=== PATIENT | male | born 1975 | race Caucasian/White ===

== ENCOUNTER 2024-10-28 22:48 | Inpatient (IN) | payer MEDICAID, MEDICARE, OTHER, SELFPAY ==
[~2024-10-28] VITALS: Ht 182.9 cm; Wt 79.0 kg
[2024-10-28] MEDS: diphenhydrAMINE 50MG/ML VIAL IM ONE (23:20)
[2024-10-28] MEDS: HALOPERIDOL LACTATE 5MG/ML VIAL IM ONE (23:20)
[2024-10-28] MEDS: LORazepam 2 MG/ML 1ML VIAL IM ONE (23:21)
[2024-10-29 00:34] LABS: ETHYL ALCOHOL (ETHANOL) 0.139 % (0.000-0.010)
[2024-10-29 00:36] LABS: ALBUMIN 3.5 G/DL (3.2-5.2); ALKALINE PHOSPHATASE 82 U/L (40-129); ALT/SGPT 20 U/L (7.0-40); AST/SGOT 21 U/L (<34); BILIRUBIN,DIRECT 0.2 MG/DL (<0.4); BILIRUBIN,TOTAL 0.5 MG/DL (0.3-1.2); BLOOD UREA NITROGEN 8 MG/DL (9-23); CARBON DIOXIDE LEVEL 26 MMOL/L (20-31); CHLORIDE LEVEL 108 MMOL/L (98-107); CREATININE FOR GFR 0.77 MG/DL (0.70-1.30); GLOMERULAR FILTRATION RATE > 60.0 (>60); GLUCOSE, FASTING 80 MG/DL (60-100); POTASSIUM SERUM 3.6 MMOL/L (3.5-5.1); SALICYLATE LEVEL < 3.0 MG/DL (<30); SODIUM LEVEL 142 MMOL/L (136-145); TOTAL PROTEIN 6.7 G/DL (5.7-8.2)
[2024-10-29 00:38] LABS: HEMATOCRIT 43.6 % (42.0-52.0); HEMOGLOBIN 15.4 g/dl (13.5-17.5); MEAN CORPUSCULAR HEMOGLOBIN 33.6 pg (27.0-33.0); MEAN CORPUSCULAR HGB CONC 35.3 g/dl (32.0-36.5); PLATELET COUNT, AUTOMATED 254 10^3/uL (150-450); RED BLOOD COUNT 4.59 10^6/uL (4.30-6.10); THYROID STIMULATING HORMONE 1.411 uIU/ML (0.55-4.78); WHITE BLOOD COUNT 5.2 10^3/uL (4.0-10.0)
[2024-10-29 06:44] LABS: AMPHETAMINES LEVEL URINE NEGATIVE (NEGATIVE); BARBITURATES URINE NEGATIVE (NEGATIVE); BENZODIAZEPINES URINE NEGATIVE (NEGATIVE); COCAINE METABOLITE URINE NEGATIVE (NEGATIVE); METHADONE URINE NEGATIVE (NEGATIVE); OPIATES URINE NEGATIVE (NEGATIVE); PHENCYCLIDINE URINE NEGATIVE (NEGATIVE)
[2024-10-29 06:46] LABS: CANNABINOIDS URINE POSITIVE (NEGATIVE)
[2024-10-29] MEDS ORDERED: MOM 30ML SUSPENSION UDC PO PRN (10:10)
[2024-10-29] MEDS ORDERED: MAALOX 30 ML SUSP *UDC PO PRN (10:10)
[2024-10-29] MEDS ORDERED: traZODone 50 MG TAB PO PRN (10:10)
[2024-10-29] MEDS ORDERED: diphenhydrAMINE 25MG CAP PO PRN (10:10)
[2024-10-29] MEDS ORDERED: IBUPROFEN 400MG TAB PO PRN (10:10)
[2024-10-29] MEDS ORDERED: ACETAMINOPHEN 325 MG TAB PO PRN (10:10)
[2024-10-29] MEDS ORDERED: HOME MED LIST COMPLETE! XX SCH (11:10)
[2024-10-29 11:21] VITALS: BP 132/82; TEMP 97.1; O2SAT 96
[2024-10-29 15:34] VITALS: BP 130/68; TEMP 97.9; O2SAT 99
[2024-10-30] MEDS ORDERED: LORazepam 2 MG TAB PO PRN (11:40)
[2024-10-30] MEDS: THIAMINE 100 MG TAB PO SCH (11:45)
[2024-10-30] MEDS: FOLIC ACID 1MG TAB PO SCH (11:45)
[2024-10-30] MEDS: MULTIVITAMINS/MINERALS THERAP 1 TAB PO SCH (11:45)
[2024-10-30 16:26] VITALS: BP 142/98; TEMP 97.8; O2SAT 96
[2024-10-31] VITALS (7 sets, daily range): BP systolic 132–150; BP diastolic 82–98; TEMP 97.5–97.9; O2SAT 98–99
[2024-11-01 06:00] VITALS: BP 140/85
[2024-11-01 06:33] VITALS: BP 140/85; TEMP 97.3; O2SAT 97
[2024-11-01] MEDS: OLANZapine 5 MG TAB PO SCH (09:00)
[2024-11-01 14:36] VITALS: BP 145/93
[2024-11-01 14:55] VITALS: BP 145/93; TEMP 97.4; O2SAT 98
[2024-11-02 06:30] VITALS: BP 139/80; TEMP 97.7; O2SAT 95
[2024-11-02 15:41] VITALS: BP 131/84; TEMP 97.2; O2SAT 99
[2024-11-03 06:53] VITALS: BP 115/80; TEMP 97.8; O2SAT 99
[2024-11-03] MEDS ORDERED: OLAN1TAB16 PO (09:13)
[2024-11-03 14:45] VITALS: BP 140/85; TEMP 98.8; O2SAT 95
[2024-11-04 06:24] VITALS: BP 141/92; TEMP 98.1; O2SAT 96
== END 2024-11-04 13:43 | disposition home or self-care (01) | DRG 885 ==
LOC: M ED 22:48 → M ED INP 10-29 10:10 → M PSY 10-29 11:36
PROVIDERS: ADMIT Psychiatry & Neurology Psychiatry; ATTEND Psychiatry & Neurology Psychiatry
DX: F20.9 Schizophrenia, unspecified (principal); F10.10 Alcohol abuse, uncomplicated

== ENCOUNTER 2024-11-13 12:47 | Inpatient (IN) | payer OTHER ==
[~2024-11-13] VITALS: Ht 182.9 cm; Wt 63.6 kg
[~2024-11-13 12:47] MED LIST: OLAN1TAB16 PO
[2024-11-13 13:24] LABS: HEMATOCRIT 51.3 % (42.0-52.0); HEMOGLOBIN 17.8 g/dl (13.5-17.5); MEAN CORPUSCULAR HGB CONC 34.7 g/dl (32.0-36.5); PLATELET COUNT, AUTOMATED 269 10^3/uL (150-450); WHITE BLOOD COUNT 8.4 10^3/uL (4.0-10.0)
[2024-11-13 13:53] LABS: AMPHETAMINES LEVEL URINE NEGATIVE (NEGATIVE); BARBITURATES URINE NEGATIVE (NEGATIVE)
[2024-11-13 13:54] LABS: BENZODIAZEPINES URINE NEGATIVE (NEGATIVE); COCAINE METABOLITE URINE NEGATIVE (NEGATIVE); METHADONE URINE NEGATIVE (NEGATIVE); OPIATES URINE NEGATIVE (NEGATIVE); PHENCYCLIDINE URINE NEGATIVE (NEGATIVE)
[2024-11-13 13:56] LABS: ETHYL ALCOHOL (ETHANOL) 0.005 % (0.000-0.010)
[2024-11-13 13:57] LABS: CANNABINOIDS URINE POSITIVE (NEGATIVE)
[2024-11-13 13:58] LABS: SALICYLATE LEVEL < 3.0 MG/DL (<30)
[2024-11-13 14:00] LABS: THYROID STIMULATING HORMONE 1.095 uIU/ML (0.55-4.78)
[2024-11-13 14:11] LABS: ALBUMIN 4.4 G/DL (3.2-5.2); ALKALINE PHOSPHATASE 91 U/L (40-129); ALT/SGPT 24 U/L (7.0-40); AST/SGOT 18 U/L (<34); BILIRUBIN,DIRECT 0.2 MG/DL (<0.4); BILIRUBIN,TOTAL 0.8 MG/DL (0.3-1.2); BLOOD UREA NITROGEN 13 MG/DL (9-23); CARBON DIOXIDE LEVEL 25 MMOL/L (20-31); CHLORIDE LEVEL 105 MMOL/L (98-107); CREATININE FOR GFR 0.82 MG/DL (0.70-1.30); GLOMERULAR FILTRATION RATE > 60.0 (>60); GLUCOSE, FASTING 87 MG/DL (60-100); MAGNESIUM LEVEL 2.4 MG/DL (1.8-2.4); POTASSIUM SERUM 4.3 MMOL/L (3.5-5.1); SODIUM LEVEL 140 MMOL/L (136-145); TOTAL PROTEIN 7.7 G/DL (5.7-8.2)
[2024-11-13 14:16] LABS: AMORPHOUS SEDIMENT SMALL (NEGATIVE); APPEARANCE, URINE HAZY (CLEAR); BACTERIA, URINE AUTO NEGATIVE (NEGATIVE); BILIRUBIN, URINE AUTO NEGATIVE (NEGATIVE); BLOOD, URINE BLOOD NEGATIVE (NEGATIVE); COLOR, URINE AMBER (YELLOW); GLUCOSE, URINE (UA) AUTO NEGATIVE (NEGATIVE); KETONE, URINE AUTO TRACE mg/dL (NEGATIVE); LEUKOCYTE ESTERASE, URINE AUTO NEGATIVE (NEGATIVE); MUCUS, URINE SMALL (NEGATIVE); NITRITE, URINE AUTO NEGATIVE (NEGATIVE); PROTEIN, URINE AUTO 1+ mg/dL (NEGATIVE); RBC, URINE AUTO 1 /HPF (0-3); SPECIFIC GRAVITY URINE AUTO 1.025 (1.002-1.035); SQUAMOUS EPITHELIAL CELL UR AU 0 /HPF (0-6); WBC, URINE AUTO 2 /HPF (0-3)
[2024-11-13] MEDS ORDERED: ACETAMINOPHEN 325 MG TAB PO PRN (15:50)
[2024-11-13] MEDS ORDERED: MOM 30ML SUSPENSION UDC PO PRN (15:50)
[2024-11-13] MEDS ORDERED: traZODone 50 MG TAB PO PRN (15:50)
[2024-11-13] MEDS ORDERED: diphenhydrAMINE 25MG CAP PO PRN (15:50)
[2024-11-13] MEDS ORDERED: MAALOX 30 ML SUSP *UDC PO PRN (15:50)
[2024-11-13] MEDS ORDERED: IBUPROFEN 400MG TAB PO PRN (15:50)
[2024-11-13] MEDS ORDERED: HOME MED LIST COMPLETE! XX SCH (20:50)
[2024-11-14 06:28] VITALS: BP 140/81; TEMP 98.2; O2SAT 97
[2024-11-14] MEDS ORDERED: OLANZapine ORAL DISINTEGRATING TAB 5MG PO PRN (09:55)
[2024-11-14] MEDS: OLANZapine 5 MG TAB PO SCH (10:27)
[2024-11-14] MEDS: MULTIVITAMINS/MINERALS THERAP 1 TAB PO SCH (10:27)
[2024-11-15 06:35] VITALS: BP 118/79; TEMP 97.4; O2SAT 98
[2024-11-15 14:37] VITALS: BP 135/78; TEMP 98; O2SAT 98
[2024-11-15] MEDS: OLANZapine 2.5MG TABLET PO ONE (20:05)
[2024-11-16 06:15] VITALS: BP 129/80; TEMP 97.7; O2SAT 98
[2024-11-16 16:27] VITALS: BP 128/74; TEMP 97.5; O2SAT 97
[2024-11-16] MEDS: OLANZapine 10 MG TAB PO SCH (20:22)
[2024-11-17 06:39] VITALS: BP 134/90; TEMP 97.3; O2SAT 96
[2024-11-17 15:23] VITALS: BP 137/82; TEMP 98.6; O2SAT 97
[2024-11-18 06:44] VITALS: BP 130/80; TEMP 97.7; O2SAT 98
[2024-11-18 15:07] VITALS: BP 141/83; TEMP 98.4; O2SAT 97
[2024-11-19 06:19] VITALS: BP 134/84; TEMP 98.1; O2SAT 96
[2024-11-19 16:40] VITALS: BP 128/72; TEMP 96; O2SAT 96
[2024-11-19 17:47] VITALS: TEMP 98
[2024-11-20 06:17] VITALS: BP 125/85; TEMP 98.2; O2SAT 99
[2024-11-20 16:17] VITALS: BP 128/75; TEMP 98.6; O2SAT 96
[2024-11-21 06:25] VITALS: BP 136/82; TEMP 97.9; O2SAT 98
[2024-11-21 15:51] VITALS: BP 137/89; TEMP 98.1; O2SAT 97
[2024-11-22 06:14] VITALS: BP 139/89; TEMP 97
[2024-11-22] MEDS ORDERED: OLAN1TAB20 PO (12:34)
[2024-11-22] MEDS ORDERED: Multivitamins PO (12:34)
[2024-11-22 17:04] VITALS: BP 131/87; TEMP 98.7; O2SAT 97
[2024-11-23 06:34] VITALS: BP 121/76; TEMP 98.2; O2SAT 96
[2024-11-23 15:14] VITALS: BP 134/86; TEMP 97; O2SAT 96
[2024-11-24 06:24] VITALS: BP 131/89; TEMP 98; O2SAT 97
[2024-11-24 15:57] VITALS: BP 126/83; TEMP 98.4; O2SAT 97
[2024-11-25 06:20] VITALS: BP 122/89; TEMP 97.4; O2SAT 98
== END 2024-11-25 13:07 | disposition home or self-care (01) | DRG 885 ==
LOC: M ED 12:47 → M ED INP 15:47 → M PSY 16:51
PROVIDERS: ADMIT Psychiatry & Neurology Psychiatry; ATTEND Psychiatry & Neurology Psychiatry
DX: F20.0 Paranoid schizophrenia (principal); F17.200 Nicotine dependence, unspecified, uncomplicated; F12.10 Cannabis abuse, uncomplicated; R45.850 Homicidal ideations

== ENCOUNTER 2024-12-14 23:14 | Inpatient (IN) | payer OTHER ==
[~2024-12-14] VITALS: Ht 182.9 cm; Wt 70.6 kg
[~2024-12-14 23:14] MED LIST changes: +Multivitamins PO; +OLAN1TAB20 PO
[2024-12-15] MEDS: diphenhydrAMINE 50MG/ML VIAL IM ONE (00:05)
[2024-12-15] MEDS: HALOPERIDOL LACTATE 5MG/ML VIAL IM ONE (00:05)
[2024-12-15] MEDS: LORazepam 2 MG/ML 1ML VIAL IM ONE (00:06)
[2024-12-15 00:28] LABS: HEMATOCRIT 44.8 % (42.0-52.0); MEAN CORPUSCULAR HEMOGLOBIN 32.9 pg (27.0-33.0); MEAN CORPUSCULAR HGB CONC 35.7 g/dl (32.0-36.5); PLATELET COUNT, AUTOMATED 260 10^3/uL (150-450); RED BLOOD COUNT 4.87 10^6/uL (4.30-6.10); WHITE BLOOD COUNT 7.9 10^3/uL (4.0-10.0)
[2024-12-15 00:37] LABS: ETHYL ALCOHOL (ETHANOL) 0.161 % (0.000-0.010)
[2024-12-15 00:39] LABS: ALKALINE PHOSPHATASE 70 U/L (40-129); ALT/SGPT 16 U/L (7.0-40); AST/SGOT 20 U/L (<34); BILIRUBIN,DIRECT 0.2 MG/DL (<0.4); BILIRUBIN,TOTAL 0.8 MG/DL (0.3-1.2); BLOOD UREA NITROGEN 8 MG/DL (9-23); CARBON DIOXIDE LEVEL 24 MMOL/L (20-31); CHLORIDE LEVEL 106 MMOL/L (98-107); CREATININE FOR GFR 0.76 MG/DL (0.70-1.30); GLOMERULAR FILTRATION RATE > 60.0 (>60); GLUCOSE, FASTING 88 MG/DL (60-100); SALICYLATE LEVEL < 3.0 MG/DL (<30); SODIUM LEVEL 140 MMOL/L (136-145); TOTAL PROTEIN 7.3 G/DL (5.7-8.2)
[2024-12-15 07:16] LABS: AMPHETAMINES LEVEL URINE NEGATIVE (NEGATIVE); BARBITURATES URINE NEGATIVE (NEGATIVE); BENZODIAZEPINES URINE NEGATIVE (NEGATIVE); COCAINE METABOLITE URINE NEGATIVE (NEGATIVE); METHADONE URINE NEGATIVE (NEGATIVE); OPIATES URINE NEGATIVE (NEGATIVE); PHENCYCLIDINE URINE NEGATIVE (NEGATIVE)
[2024-12-15 07:20] LABS: CANNABINOIDS URINE POSITIVE (NEGATIVE)
[2024-12-15] MEDS ORDERED: HOME MED LIST COMPLETE! XX SCH (10:00)
[2024-12-15 13:20] VITALS: BP 117/68; TEMP 97.5; O2SAT 97
[2024-12-15 16:53] VITALS: BP 132/78; TEMP 98.3; O2SAT 97
[2024-12-15] MEDS ORDERED: MAALOX 30 ML SUSP *UDC PO PRN (22:30)
[2024-12-15] MEDS ORDERED: MOM 30ML SUSPENSION UDC PO PRN (22:30)
[2024-12-15] MEDS ORDERED: ACETAMINOPHEN 325 MG TAB PO PRN (22:30)
[2024-12-15] MEDS ORDERED: LORazepam 1 MG TAB PO PRN (22:30)
[2024-12-15] MEDS ORDERED: IBUPROFEN 400MG TAB PO PRN (22:30)
[2024-12-15] MEDS ORDERED: traZODone 50 MG TAB PO PRN (22:30)
[2024-12-15] MEDS ORDERED: OLANZapine ORAL DISINTEGRATING TAB 5MG PO PRN (22:30)
[2024-12-15] MEDS ORDERED: diphenhydrAMINE 25MG CAP PO PRN (22:30)
[2024-12-15] MEDS: MULTIVITAMINS/MINERALS THERAP 1 TAB PO SCH (22:49)
[2024-12-16 06:34] VITALS: BP 133/87; TEMP 97.8; O2SAT 94
[2024-12-16] MEDS: NICOTINE 14 MG/24 HR TRANSDERMAL TD SCH (08:15)
[2024-12-16] MEDS: OLANZapine 5 MG TAB PO SCH (08:56)
[2024-12-16 15:56] VITALS: BP 116/71; TEMP 97.9; O2SAT 97
[2024-12-17 06:36] VITALS: BP 144/86; TEMP 98.1; O2SAT 95
[2024-12-17 15:19] VITALS: BP 125/79; TEMP 98.7; O2SAT 97
[2024-12-18 06:45] VITALS: BP 128/86; TEMP 97.3; O2SAT 98
[2024-12-18 15:19] VITALS: BP 133/91; TEMP 98.3; O2SAT 95
[2024-12-19 06:36] VITALS: BP 122/76; TEMP 97.8; O2SAT 96
[2024-12-19 17:47] VITALS: BP 157/94; TEMP 97.1; O2SAT 97
[2024-12-20 06:56] VITALS: BP 165/89; TEMP 98.7; O2SAT 99
[2024-12-20] MEDS ORDERED: OLAN1TAB16 PO (10:48)
[2024-12-20] MEDS ORDERED: TRAZ-252 PO (10:48)
== END 2024-12-20 13:08 | disposition home or self-care (01) | DRG 885 ==
LOC: M ED 23:14 → M ED INP 12-15 12:10 → M PSY 12-15 13:33
PROVIDERS: ADMIT Psychiatry & Neurology Psychiatry; ATTEND Internal Medicine
DX: F20.3 Undifferentiated schizophrenia (principal); Z78.1 Physical restraint status; R45.1 Restlessness and agitation; F17.210 Nicotine dependence, cigarettes, uncomplicated

== ENCOUNTER 2024-12-20 22:36 | Inpatient (IN) | payer OTHER ==
[~2024-12-20] VITALS: Ht 182.9 cm; Wt 71.0 kg
[~2024-12-20 22:36] MED LIST changes: +TRAZ-252 PO
[2024-12-20] MEDS: OLANZapine INTRAMUSCULAR 10MG VIAL IM ONE (23:05)
[2024-12-20 23:38] LABS: ETHYL ALCOHOL (ETHANOL) 0.139 % (0.000-0.010)
[2024-12-20 23:39] LABS: ALBUMIN 3.8 G/DL (3.2-5.2); ALKALINE PHOSPHATASE 63 U/L (40-129); ALT/SGPT 28 U/L (7.0-40); AST/SGOT 36 U/L (<34); BILIRUBIN,DIRECT 0.1 MG/DL (<0.4); BILIRUBIN,TOTAL 0.4 MG/DL (0.3-1.2); BLOOD UREA NITROGEN 10 MG/DL (9-23); CALCIUM LEVEL 8.7 MG/DL (8.5-10.1); CARBON DIOXIDE LEVEL 26 MMOL/L (20-31); CHLORIDE LEVEL 106 MMOL/L (98-107); GLOMERULAR FILTRATION RATE > 60.0 (>60); GLUCOSE, FASTING 93 MG/DL (60-100); POTASSIUM SERUM 4.2 MMOL/L (3.5-5.1); SALICYLATE LEVEL < 3.0 MG/DL (<30); SODIUM LEVEL 143 MMOL/L (136-145); TOTAL PROTEIN 7.2 G/DL (5.7-8.2)
[2024-12-20 23:42] LABS: THYROID STIMULATING HORMONE 2.665 uIU/ML (0.55-4.78)
[2024-12-21 00:11] LABS: HEMATOCRIT 44.4 % (42.0-52.0); HEMOGLOBIN 15.4 g/dl (13.5-17.5); MEAN CORPUSCULAR HEMOGLOBIN 32.7 pg (27.0-33.0); MEAN CORPUSCULAR HGB CONC 34.7 g/dl (32.0-36.5); MEAN CORPUSCULAR VOLUME 94.3 fl (80.0-96.0); PLATELET COUNT, AUTOMATED 264 10^3/uL (150-450); RED BLOOD COUNT 4.71 10^6/uL (4.30-6.10); WHITE BLOOD COUNT 7.2 10^3/uL (4.0-10.0)
[2024-12-21 04:17] LABS: AMPHETAMINES LEVEL URINE NEGATIVE (NEGATIVE); BARBITURATES URINE NEGATIVE (NEGATIVE); BENZODIAZEPINES URINE NEGATIVE (NEGATIVE); CANNABINOIDS URINE NEGATIVE (NEGATIVE); COCAINE METABOLITE URINE NEGATIVE (NEGATIVE); METHADONE URINE NEGATIVE (NEGATIVE); OPIATES URINE NEGATIVE (NEGATIVE); PHENCYCLIDINE URINE NEGATIVE (NEGATIVE)
[2024-12-21] MEDS ORDERED: FAMOTIDINE 20 MG TAB PO PRN (13:10)
[2024-12-21] MEDS ORDERED: ACETAMINOPHEN 500 MG TAB PO PRN (13:10)
[2024-12-21] MEDS ORDERED: diphenhydrAMINE 25MG CAP PO PRN ×2 (13:10→14:55)
[2024-12-21] MEDS ORDERED: SUCRALFATE 1 GM TAB PO PRN (13:10)
[2024-12-21] MEDS ORDERED: OLANZapine ORAL DISINTEGRATING TAB 5MG PO PRN ×2 (13:10→14:55)
[2024-12-21] MEDS ORDERED: diphenhydrAMINE 50MG CAP PO PRN (13:10)
[2024-12-21] MEDS ORDERED: ONDANSETRON 4MG ORAL DISINTEGRATING TAB PO PRN (13:10)
[2024-12-21] MEDS ORDERED: IBUPROFEN 400MG TAB PO PRN (13:10)
[2024-12-21] MEDS ORDERED: LORazepam 2 MG TAB PO PRN (13:10)
[2024-12-21] MEDS ORDERED: CETIRIZINE (ZyrTEC) 10 MG TAB PO PRN (13:10)
[2024-12-21] MEDS ORDERED: ACETAMINOPHEN 325 MG TAB PO PRN (14:55)
[2024-12-21] MEDS ORDERED: OLANZapine 5 MG TAB PO PRN (14:55)
[2024-12-21] MEDS ORDERED: MOM 30ML SUSPENSION UDC PO PRN (14:55)
[2024-12-21] MEDS ORDERED: HOME MED LIST COMPLETE! XX SCH (14:55)
[2024-12-21] MEDS ORDERED: MAALOX 30 ML SUSP *UDC PO PRN (14:55)
[2024-12-21] MEDS ORDERED: traZODone 50 MG TAB PO PRN (14:55)
[2024-12-21] MEDS ORDERED: LORazepam 1 MG TAB PO PRN (14:55)
[2024-12-21 15:56] VITALS: BP 119/75; TEMP 98; O2SAT 99
[2024-12-21] MEDS: OLANZapine 5 MG TAB PO SCH (20:22)
[2024-12-22 06:36] VITALS: BP 139/85; TEMP 98.9; O2SAT 98
[2024-12-22] MEDS: NICOTINE 14 MG/24 HR TRANSDERMAL TD SCH (08:08)
[2024-12-22 14:51] VITALS: BP 129/83; TEMP 97.9; O2SAT 97
[2024-12-22] MEDS: traZODone 50 MG TAB PO SCH (20:13)
[2024-12-23 06:25] VITALS: BP 119/81; TEMP 97.9; O2SAT 98
[2024-12-23] MEDS: BENZTROPINE 1 MG TAB PO SCH (14:17)
[2024-12-23 17:05] VITALS: BP 134/81; TEMP 98.6; O2SAT 96
[2024-12-24 06:11] VITALS: BP 128/85; TEMP 97.2; O2SAT 97
[2024-12-24 15:18] VITALS: BP 119/76; TEMP 98.4; O2SAT 96
[2024-12-25 07:01] VITALS: BP 139/90; TEMP 97.6; O2SAT 98
[2024-12-25 14:52] VITALS: BP 129/80; TEMP 98.9; O2SAT 96
[2024-12-26 06:45] VITALS: BP 135/80; TEMP 97.1; O2SAT 98
[2024-12-26 17:03] VITALS: BP 139/81; TEMP 97.4; O2SAT 98
[2024-12-27 06:46] VITALS: BP 126/73; TEMP 97.7; O2SAT 97
[2024-12-27] MEDS ORDERED: TRAZ-252 PO (09:12)
[2024-12-27] MEDS ORDERED: BENZ1TAB5 PO (09:12)
[2024-12-27] MEDS ORDERED: OLAN1TAB16 PO (09:12)
== END 2024-12-27 15:00 | disposition home or self-care (01) | DRG 885 ==
LOC: M ED 22:36 → M PSY 12-21 14:55 → M ED 12-21 14:55 → M ED INP 12-21 14:55
PROVIDERS: ADMIT Internal Medicine; ATTEND Psychiatry & Neurology Psychiatry
DX: F25.0 Schizoaffective disorder, bipolar type (principal); F41.0 Panic disorder [episodic paroxysmal anxiety]; F10.20 Alcohol dependence, uncomplicated; Z79.899 Other long term (current) drug therapy; R45.850 Homicidal ideations; F17.210 Nicotine dependence, cigarettes, uncomplicated

== ENCOUNTER 2025-02-12 01:48 | Inpatient (IN) | payer OTHER ==
[~2025-02-12] VITALS: Ht 182.9 cm; Wt 67.0 kg
[~2025-02-12 01:48] MED LIST changes: +BENZ1TAB5 PO
[2025-02-12 02:45] LABS: HEMATOCRIT 44.8 % (42.0-52.0); HEMOGLOBIN 15.8 g/dl (13.5-17.5); MEAN CORPUSCULAR HEMOGLOBIN 33.7 pg (27.0-33.0); MEAN CORPUSCULAR HGB CONC 35.3 g/dl (32.0-36.5); MEAN CORPUSCULAR VOLUME 95.5 fl (80.0-96.0); PLATELET COUNT, AUTOMATED 246 10^3/uL (150-450); RED BLOOD COUNT 4.69 10^6/uL (4.30-6.10); WHITE BLOOD COUNT 5.9 10^3/uL (4.0-10.0)
[2025-02-12 03:08] LABS: AMPHETAMINES LEVEL URINE NEGATIVE (NEGATIVE); BARBITURATES URINE NEGATIVE (NEGATIVE); BENZODIAZEPINES URINE NEGATIVE (NEGATIVE); COCAINE METABOLITE URINE NEGATIVE (NEGATIVE); METHADONE URINE NEGATIVE (NEGATIVE); OPIATES URINE NEGATIVE (NEGATIVE); PHENCYCLIDINE URINE NEGATIVE (NEGATIVE)
[2025-02-12 03:10] LABS: ETHYL ALCOHOL (ETHANOL) 0.161 % (0.000-0.010)
[2025-02-12 03:12] LABS: ALBUMIN 3.8 G/DL (3.2-5.2); ALKALINE PHOSPHATASE 50 U/L (40-129); ALT/SGPT 35 U/L (7.0-40); AST/SGOT 21 U/L (<34); BILIRUBIN,DIRECT 0.2 MG/DL (<0.4); BILIRUBIN,TOTAL 0.5 MG/DL (0.3-1.2); BLOOD UREA NITROGEN 8 MG/DL (9-23); CALCIUM LEVEL 8.7 MG/DL (8.5-10.1); CARBON DIOXIDE LEVEL 26 MMOL/L (20-31); CHLORIDE LEVEL 107 MMOL/L (98-107); CREATININE FOR GFR 0.73 MG/DL (0.70-1.30); GLOMERULAR FILTRATION RATE > 60.0 (>60); GLUCOSE, FASTING 88 MG/DL (60-100); POTASSIUM SERUM 3.8 MMOL/L (3.5-5.1); SALICYLATE LEVEL < 3.0 MG/DL (<30); SODIUM LEVEL 142 MMOL/L (136-145)
[2025-02-12 03:14] LABS: THYROID STIMULATING HORMONE 1.688 uIU/ML (0.55-4.78)
[2025-02-12 03:34] LABS: CANNABINOIDS URINE POSITIVE (NEGATIVE)
[2025-02-12] MEDS ORDERED: diphenhydrAMINE 25MG CAP PO PRN (06:30)
[2025-02-12] MEDS ORDERED: OLANZapine ORAL DISINTEGRATING TAB 5MG PO PRN (06:30)
[2025-02-12] MEDS ORDERED: MOM 30ML SUSPENSION UDC PO PRN (06:30)
[2025-02-12] MEDS ORDERED: MAALOX 30 ML SUSP *UDC PO PRN (06:30)
[2025-02-12] MEDS ORDERED: ACETAMINOPHEN 325 MG TAB PO PRN (06:30)
[2025-02-12] MEDS ORDERED: IBUPROFEN 400MG TAB PO PRN (06:30)
[2025-02-12 08:31] VITALS: BP 116/73; TEMP 97.6; O2SAT 99
[2025-02-12 09:00] VITALS: BP 116/73
[2025-02-12] MEDS ORDERED: LORazepam 2 MG TAB PO PRN (09:15)
[2025-02-12] MEDS: OLANZapine 5 MG TAB PO SCH (09:50)
[2025-02-12] MEDS: THIAMINE 100 MG TAB PO SCH (09:50)
[2025-02-12] MEDS: BENZTROPINE 0.5 MG TAB PO SCH (09:50)
[2025-02-12] MEDS: MULTIVITAMINS/MINERALS THERAP 1 TAB PO SCH (09:50)
[2025-02-12] MEDS: FOLIC ACID 1MG TAB PO SCH (09:50)
[2025-02-12] MEDS ORDERED: HOME MED LIST COMPLETE! XX SCH (14:55)
[2025-02-12 14:57] VITALS: BP 121/77; TEMP 97.2; O2SAT 97
[2025-02-12 17:00] VITALS: BP 121/77
[2025-02-12] MEDS: traZODone 50 MG TAB PO PRN (20:11)
[2025-02-12 22:00] VITALS: BP 147/91
[2025-02-13 06:34] VITALS: BP 131/74; TEMP 98.1; O2SAT 94
[2025-02-13 14:25] VITALS: BP 161/99
[2025-02-13 15:46] VITALS: BP 161/99; TEMP 97.8; O2SAT 97
[2025-02-13 22:55] VITALS: BP 128/85
[2025-02-14 06:34] VITALS: BP 132/84; TEMP 97.6; O2SAT 98
[2025-02-14 15:43] VITALS: BP 140/90; TEMP 97.1; O2SAT 94
[2025-02-14 20:24] VITALS: BP 132/84
[2025-02-15 06:00] VITALS: BP 126/83; TEMP 97.9; O2SAT 97
[2025-02-15 15:18] VITALS: BP 126/91; TEMP 97.9; O2SAT 98
[2025-02-16 06:29] VITALS: BP 146/78; TEMP 97.6; O2SAT 99
[2025-02-16 08:53] VITALS: BP 142/71
[2025-02-16 13:47] VITALS: BP 142/92
[2025-02-16 16:16] VITALS: BP 136/88; TEMP 98.1; O2SAT 98
[2025-02-17 06:34] VITALS: BP 128/69; TEMP 98.1; O2SAT 98
[2025-02-17 08:43] VITALS: BP 128/68
[2025-02-17] MEDS ORDERED: BENZ0.5T2 PO (09:50)
== END 2025-02-17 14:19 | disposition home or self-care (01) | DRG 885 ==
LOC: M ED 01:48 → M ED INP 06:29 → M PSY 08:33
PROVIDERS: ADMIT Psychiatry & Neurology Neurology; ATTEND Internal Medicine
DX: F25.0 Schizoaffective disorder, bipolar type (principal); R45.851 Suicidal ideations; F41.9 Anxiety disorder, unspecified; F10.229 Alcohol dependence with intoxication, unspecified; R45.850 Homicidal ideations; Z91.148 Patient's other noncompliance with medication regimen for other reason

== ENCOUNTER 2025-03-10 18:43 | Inpatient (IN) | payer OTHER ==
[~2025-03-10] VITALS: Ht 182.9 cm; Wt 67.0 kg
[~2025-03-10 18:43] MED LIST changes: +BENZ0.5T2 PO
[2025-03-10 20:28] LABS: HEMATOCRIT 44.8 % (42.0-52.0); HEMOGLOBIN 15.9 g/dl (13.5-17.5); MEAN CORPUSCULAR HEMOGLOBIN 33.3 pg (27.0-33.0); MEAN CORPUSCULAR HGB CONC 35.5 g/dl (32.0-36.5); MEAN CORPUSCULAR VOLUME 93.7 fl (80.0-96.0); PLATELET COUNT, AUTOMATED 259 10^3/uL (150-450); RED BLOOD COUNT 4.78 10^6/uL (4.30-6.10); WHITE BLOOD COUNT 6.4 10^3/uL (4.0-10.0)
[2025-03-10 20:58] LABS: AMPHETAMINES LEVEL URINE NEGATIVE (NEGATIVE)
[2025-03-10 20:59] LABS: BARBITURATES URINE NEGATIVE (NEGATIVE); BENZODIAZEPINES URINE NEGATIVE (NEGATIVE); COCAINE METABOLITE URINE NEGATIVE (NEGATIVE)
[2025-03-10 21:00] LABS: METHADONE URINE NEGATIVE (NEGATIVE); OPIATES URINE NEGATIVE (NEGATIVE); PHENCYCLIDINE URINE NEGATIVE (NEGATIVE)
[2025-03-10 21:02] LABS: ETHYL ALCOHOL (ETHANOL) 0.102 % (0.000-0.010)
[2025-03-10 21:03] LABS: ALBUMIN 3.8 G/DL (3.2-5.2); ALKALINE PHOSPHATASE 52 U/L (40-129); ALT/SGPT 16 U/L (7.0-40); AST/SGOT 18 U/L (<34); BILIRUBIN,DIRECT 0.2 MG/DL (<0.4); BILIRUBIN,TOTAL 0.7 MG/DL (0.3-1.2); BLOOD UREA NITROGEN 9 MG/DL (9-23); CALCIUM LEVEL 8.9 MG/DL (8.5-10.1); CANNABINOIDS URINE POSITIVE (NEGATIVE); CARBON DIOXIDE LEVEL 25 MMOL/L (20-31); CHLORIDE LEVEL 107 MMOL/L (98-107); CREATININE FOR GFR 0.72 MG/DL (0.70-1.30); GLOMERULAR FILTRATION RATE > 90.0 (>60); GLUCOSE, FASTING 108 MG/DL (60-100); POTASSIUM SERUM 3.4 MMOL/L (3.5-5.1); SALICYLATE LEVEL < 3.0 MG/DL (<30); SODIUM LEVEL 140 MMOL/L (136-145); TOTAL PROTEIN 6.8 G/DL (5.7-8.2)
[2025-03-10 21:04] LABS: THYROID STIMULATING HORMONE 1.008 uIU/ML (0.55-4.78)
[2025-03-10] MEDS: POTASSIUM CHLORIDE 10MEQ SR TABLET PO ONE (21:47)
[2025-03-11] MEDS ORDERED: HOME MED LIST COMPLETE! XX SCH ×2 (00:30→00:40)
[2025-03-12] MEDS: LORazepam 2 MG TAB PO PRN (14:09)
[2025-03-13] MEDS ORDERED: OLANZapine 5 MG TAB PO PRN (11:40)
[2025-03-13] MEDS ORDERED: MOM 30ML SUSPENSION UDC PO PRN (11:40)
[2025-03-13] MEDS ORDERED: MAALOX 30 ML SUSP *UDC PO PRN (11:40)
[2025-03-13] MEDS ORDERED: traZODone 50 MG TAB PO PRN (11:40)
[2025-03-13] MEDS ORDERED: ACETAMINOPHEN 325 MG TAB PO PRN (11:40)
[2025-03-13] MEDS ORDERED: LORazepam 1 MG TAB PO PRN (11:40)
[2025-03-13] MEDS ORDERED: diphenhydrAMINE 25MG CAP PO PRN (11:40)
[2025-03-13 12:35] VITALS: BP 121/84; TEMP 97.9; O2SAT 94
[2025-03-13 16:53] VITALS: BP 108/74; TEMP 97.6; O2SAT 99
[2025-03-14 06:33] VITALS: BP 126/89; TEMP 97.8; O2SAT 98
[2025-03-14] MEDS: NICOTINE 14 MG/24 HR TRANSDERMAL TD SCH (09:00)
[2025-03-14] MEDS: OLANZapine 5 MG TAB PO SCH (09:02)
[2025-03-14 15:57] VITALS: BP 126/88; TEMP 97.8; O2SAT 97
[2025-03-14] MEDS: DOXYCYCLINE HYCLATE 100MG TABLET PO SCH (20:38)
[2025-03-15 06:37] VITALS: BP 128/78; TEMP 97.5; O2SAT 97
[2025-03-15 15:39] VITALS: BP 120/79; TEMP 97.3; O2SAT 99
[2025-03-16 06:24] VITALS: BP 136/89; TEMP 97.6; O2SAT 96
[2025-03-16 15:09] VITALS: BP 118/77; TEMP 97.8; O2SAT 99
[2025-03-17 06:39] VITALS: BP 136/85; TEMP 97.8; O2SAT 100
[2025-03-17] MEDS ORDERED: OLAN1TAB16 PO (06:59)
[2025-03-17] MEDS ORDERED: DOXY100T PO (06:59)
== END 2025-03-17 12:38 | disposition home or self-care (01) | DRG 885 ==
LOC: M ED 18:43 → M ED INP 03-13 11:38 → UNDODEPER 03-13 11:59 → M PSY 03-13 12:38
PROVIDERS: ADMIT Internal Medicine; ATTEND Psychiatry & Neurology Psychiatry
DX: F20.9 Schizophrenia, unspecified (principal); R45.851 Suicidal ideations; L02.212 Cutaneous abscess of back [any part, except buttock and flank]; L03.312 Cellulitis of back [any part except buttock and flank]; F10.10 Alcohol abuse, uncomplicated; Z91.198 Patient's noncompliance with other medical treatment and regimen for other reason; Z91.148 Patient's other noncompliance with medication regimen for other reason; F17.210 Nicotine dependence, cigarettes, uncomplicated

== ENCOUNTER 2025-03-31 00:30 | Emergency (ER) | payer OTHER ==
[~2025-03-31] VITALS: Ht 182.9 cm; Wt 77.3 kg
[~2025-03-31 00:30] MED LIST changes: +DOXY100T PO
[2025-03-31 01:07] LABS: HEMATOCRIT 44.2 % (42.0-52.0); HEMOGLOBIN 15.8 g/dl (13.5-17.5); MEAN CORPUSCULAR HEMOGLOBIN 33.8 pg (27.0-33.0); MEAN CORPUSCULAR HGB CONC 35.7 g/dl (32.0-36.5); MEAN CORPUSCULAR VOLUME 94.6 fl (80.0-96.0); PLATELET COUNT, AUTOMATED 270 10^3/uL (150-450); RED BLOOD COUNT 4.67 10^6/uL (4.30-6.10); WHITE BLOOD COUNT 6.1 10^3/uL (4.0-10.0)
[2025-03-31 01:30] LABS: AMPHETAMINES LEVEL URINE NEGATIVE (NEGATIVE); BARBITURATES URINE NEGATIVE (NEGATIVE); BENZODIAZEPINES URINE NEGATIVE (NEGATIVE); COCAINE METABOLITE URINE NEGATIVE (NEGATIVE); METHADONE URINE NEGATIVE (NEGATIVE); OPIATES URINE NEGATIVE (NEGATIVE); PHENCYCLIDINE URINE NEGATIVE (NEGATIVE)
[2025-03-31 01:33] LABS: ETHYL ALCOHOL (ETHANOL) 0.106 % (0.000-0.010)
[2025-03-31 01:34] LABS: ALKALINE PHOSPHATASE 54 U/L (40-129); ALT/SGPT 17 U/L (7.0-40); AST/SGOT 17 U/L (<34); BILIRUBIN,DIRECT 0.2 MG/DL (<0.4); BILIRUBIN,TOTAL 0.7 MG/DL (0.3-1.2); BLOOD UREA NITROGEN 7 MG/DL (9-23); CARBON DIOXIDE LEVEL 24 MMOL/L (20-31); CHLORIDE LEVEL 106 MMOL/L (98-107); CREATININE FOR GFR 0.71 MG/DL (0.70-1.30); GLOMERULAR FILTRATION RATE > 90.0 (>60); GLUCOSE, FASTING 92 MG/DL (60-100); POTASSIUM SERUM 3.9 MMOL/L (3.5-5.1); SALICYLATE LEVEL < 3.0 MG/DL (<30); SODIUM LEVEL 139 MMOL/L (136-145); TOTAL PROTEIN 7.1 G/DL (5.7-8.2)
[2025-03-31 01:36] LABS: THYROID STIMULATING HORMONE 1.959 uIU/ML (0.55-4.78)
[2025-03-31 01:56] LABS: CANNABINOIDS URINE POSITIVE (NEGATIVE)
[2025-03-31] MEDS ORDERED: HOME MED LIST COMPLETE! XX SCH (08:00)
[2025-03-31 08:11] VITALS: BP 149/87; TEMP 97.9; O2SAT 99
== END 2025-03-31 12:12 | disposition home or self-care (01) ==
LOC: M ED 00:30
DX: F25.9 Schizoaffective disorder, unspecified (principal); F10.120 Alcohol abuse with intoxication, uncomplicated; F17.210 Nicotine dependence, cigarettes, uncomplicated

== ENCOUNTER 2025-05-30 02:33 | Inpatient (IN) | payer OTHER ==
[~2025-05-30] VITALS: Ht 185.4 cm; Wt 67.0 kg
[2025-05-30 03:15] LABS: PLATELET COUNT, AUTOMATED 258 10^3/uL (150-450)
[2025-05-30 03:34] LABS: AMPHETAMINES LEVEL URINE NEGATIVE (NEGATIVE); BARBITURATES URINE NEGATIVE (NEGATIVE); BENZODIAZEPINES URINE NEGATIVE (NEGATIVE); COCAINE METABOLITE URINE NEGATIVE (NEGATIVE); METHADONE URINE NEGATIVE (NEGATIVE); OPIATES URINE NEGATIVE (NEGATIVE); PHENCYCLIDINE URINE NEGATIVE (NEGATIVE)
[2025-05-30 03:36] LABS: ETHYL ALCOHOL (ETHANOL) 0.154 % (0.000-0.010)
[2025-05-30 03:38] LABS: ALT/SGPT 18 U/L (7.0-40); AST/SGOT 22 U/L (<34); CALCIUM LEVEL 9.0 MG/DL (8.5-10.1); CARBON DIOXIDE LEVEL 22 MMOL/L (20-31); CHLORIDE LEVEL 106 MMOL/L (98-107); CREATININE FOR GFR 0.84 MG/DL (0.70-1.30); GLOMERULAR FILTRATION RATE > 90.0 (>60); POTASSIUM SERUM 4.3 MMOL/L (3.5-5.1); SALICYLATE LEVEL < 3.0 MG/DL (<30); SODIUM LEVEL 140 MMOL/L (136-145)
[2025-05-30 03:47] LABS: CANNABINOIDS URINE POSITIVE (NEGATIVE)
[2025-05-30] MEDS ORDERED: HOME MED LIST COMPLETE! XX SCH (08:25)
[2025-05-30] MEDS ORDERED: IBUPROFEN 400 MG TAB PO PRN (15:20)
[2025-05-30] MEDS ORDERED: ACETAMINOPHEN 325 MG TAB PO PRN (15:20)
[2025-05-30] MEDS ORDERED: MOM 30 ML SUSPENSION UDC PO PRN (15:20)
[2025-05-30] MEDS ORDERED: MAALOX 30 ML SUSP *UDC PO PRN (15:20)
[2025-05-30 18:15] VITALS: BP 141/86; TEMP 98.4; O2SAT 99
[2025-05-30 18:40] VITALS: BP 141/86
[2025-05-30] MEDS: FOLIC ACID 1 MG TAB PO SCH (18:52)
[2025-05-30] MEDS: MULTIVITAMINS/MINERALS THERAP 1 TAB PO SCH (18:52)
[2025-05-30] MEDS: THIAMINE 100 MG TAB PO SCH (21:05)
[2025-05-31 06:27] VITALS: BP 121/75; TEMP 97.9; O2SAT 100
[2025-05-31 11:00] VITALS: BP 143/90
[2025-05-31 18:36] VITALS: BP 134/84; TEMP 98.4; O2SAT 98
[2025-05-31 19:00] VITALS: BP 134/84
[2025-05-31] MEDS: OLANZapine 5 MG TAB PO SCH (20:07)
[2025-06-01 06:10] VITALS: BP 133/81; TEMP 98; O2SAT 98
[2025-06-01 15:01] VITALS: BP 136/89; TEMP 97; O2SAT 97
[2025-06-01] MEDS: traZODone 50 MG TAB PO PRN (20:18)
[2025-06-02 14:48] VITALS: BP 156/90; TEMP 98.2; O2SAT 98
[2025-06-03 14:00] VITALS: BP 138/88; TEMP 98.7; O2SAT 98
[2025-06-04 06:32] VITALS: BP 138/85; TEMP 98.2; O2SAT 100
[2025-06-04 14:30] VITALS: BP 132/87; TEMP 98.5; O2SAT 100
[2025-06-05 06:09] VITALS: BP 130/90; TEMP 98.7; O2SAT 99
[2025-06-05] MEDS ORDERED: OLAN1TAB16 PO (12:42)
== END 2025-06-05 14:02 | disposition home or self-care (01) | DRG 885 ==
LOC: M ED 02:33 → M ED INP 15:16 → M PSY 17:32
PROVIDERS: ADMIT Psychiatry & Neurology Neurology; ATTEND Internal Medicine
DX: F25.9 Schizoaffective disorder, unspecified (principal); F10.20 Alcohol dependence, uncomplicated; Z56.0 Unemployment, unspecified; F41.9 Anxiety disorder, unspecified; Z91.148 Patient's other noncompliance with medication regimen for other reason